=== PATIENT | male | born 1965 | race Caucasian/White ===

== ENCOUNTER 2016-12-20 19:36 | Inpatient (IN) | payer OTHER ==
--- NOTE | ~2016-12-20 | HP ---
Unit #: [id number] #: [id number] Patient: TON ANDERSON [id number] [place] [address] [id number] MR#: [id number] NAME: TON ANDERSON ROOM: P256 Age: 51 Sex: M Admission Date: 12/20/2016 : 1965 Attending Physician: Chacorta Allison M.D. Admitting Physician: Chacorta Allison M.D. Primary Care Physician: Primary Care Physician No HISTORY AND PHYSICAL HISTORY OF PRESENT ILLNESS Ton is a 51 year old admitted to [address] [place] [address] because of his poly illicit substance abuse which includes methamphetamine. He also reports auditory hallucinations. PAST MEDICAL HISTORY 1. Degenerative disc disease a. Chronic pain 2. COPD 3. High blood pressure PAST SURGICAL HISTORY Nothing reported ALLERGIES No known drug allergies. SOCIAL HISTORY Smokes less than one-half pack per day. Has a history of alcohol abuse but has been sober since 1999. Also gives history of illicit substance abuse most recently methamphetamine. FAMILY HISTORY Medically noncontributory. REVIEW OF SYSTEMS CONSTITUTIONAL: No fever or chills. HEENT: Denies any sore throat, ear pain or runny nose. CARDIOVASCULAR: Denies chest pain, irregular heart rhythm or palpitations. CHEST: Denies shortness of breath or cough. No hemoptysis. GASTROINTESTINAL: Denies nausea, vomiting, diarrhea or chronic constipation. ENDOCRINE: Denies history of increased thirst or urination. No recent significant weight loss or gain. GENITOURINARY: Denies dysuria, frequency, or hematuria. SKIN: Denies any rashes. HEMATOLOGIC: Denies history of increased bleeding or bruising. MUSCULOSKELETAL: Denies any hot, swollen joints. No generalized muscle pain. NEUROLOGIC: Denies problems with vision or speech. No frequent, severe headaches. No numbness, tingling or weakness in any extremities. Denies loss of bladder or bowel control. Unit #: [id number] #: [id number] Patient: TON ANDERSON CURRENT MEDICATIONS 1. Risperdal 2 mg q.h.s. 2. Qvar 2 puffs b.i.d. 3. Protonix 40 mg daily 4. Flexeril 5 mg b.i.d. 5. Claritin 10 mg daily 6. Prozac 80 mg daily 7. Propranolol 80 mg t.i.d. p.r.n. 8. Albuterol nebs 9. Proventil inhaler p.r.n. 10. Milk of Magnesia p.r.n. 11. Maalox p.r.n. 12. Tylenol p.r.n. 13. Lortab 7.5 mg 1 tab b.i.d. p.r.n. 14. Amitriptyline 25 mg q.h.s. 15. Singulair 10 mg daily 16. Neurontin 600 mg t.i.d. 17. Depakote ER 2000 mg q.h.s. PHYSICAL EXAMINATION GENERAL: Alert, elderly gentleman appearing much older than his stated age, in no apparent distress. VITAL SIGNS: Blood pressure 116/82, heart rate 80, respirations 16, temperature 98.6. WEIGHT: 166 pounds. HEIGHT: 5'10". SKIN: Warm and dry without rash or lesion. HEENT: Normocephalic. TMs not viewed. Oral and nasal passages clear. Conjunctivae clear. Pupils equal, round and reactive to light and accommodation. Extraocular movements intact. NECK: Supple without lymphadenopathy or thyromegaly. HEART: Regular rate and rhythm without murmur. LUNGS: Clear. ABDOMEN: Soft, nontender. : Not done. EXTREMITIES: No evidence of cyanosis, clubbing or edema. Moves all extremities without focal deficit. NEUROLOGICAL: Grossly within normal limits. Cranial Nerves: II: Visual jonas are intact. III, IV AND : Extraocular movements are intact. Pupils are equal, round and reactive to light. V: Facial sensation is grossly normal. VII: Facial movements and expression are normal. VIII: Auditory acuity grossly intact. IX, X: Uvula is midline. Phonation is normal. XI: Patient shrugs shoulders and turns head normally. XII: Tongue protrudes in the midline. Sensory and Motor Function: Sensory and motor sensation is grossly normal. Motor: moves all extremities well. Coordination: Gait is normal. Deep Tendon Reflexes: Intact. IMPRESSION Psychiatric admission RECOMMENDATIONS PSYCHIATRIC: Per psychiatrist. MEDICAL: I see no contraindications to participating in facility's activities. Unit #: [id number] #: [id number] Patient: TON ANDERSON MEDICAL PROGNOSIS Good. MEDICAL CONDITION Stable. Dictated by... Barb Palm P.A.-C. for Levi Tavera/nedra TD: 12/21/2016 22:07 JOB #: [id number] HISTORY AND PHYSICAL Page 1 of 1 X Barb Palm X HISTORY AND PHYSICAL
--- NOTE | ~2016-12-20 | DS ---
Unit #: [id number] #: [id number] Patient: COLBY BUTLER [id number] [facility] [address] [place] [address] [id number] MR#: [id number] NAME: COLBY BUTLER ROOM: 30 Age: 51 Sex: M Admission Date: 12/20/2016 : 1965 Discharge Date: 12/30/2016 Attending Physician: Chacorta Allison M.D. Primary Care Physician: Primary Care Physician No DISCHARGE SUMMARY REASON FOR ADMISSION Mr. Butler is a 51-year-old man with a history of schizophrenia and history of polysubstance dependence. He lives alone and reports of recent decrease in his functioning. He was hallucinating when picked up by the police and admitted to relapse on methamphetamines. He was admitted for stabilization. DIAGNOSTIC STUDIES LABORATORY RESULTS: Please see hospital chart. HOSPITAL COURSE The patient was admitted and placed on suicide and falls precautions. Risperdal 2 mg at bedtime was added to his previous medication regimen for psychosis and he tolerated his medication with no significant adverse side effects. He had minimal detox symptomatology and on the date of discharge, he had improved mood stability with ability to contract for safety. His home previous medications were continued and unchanged. DISCHARGE DIAGNOSES AXIS I: Bipolar, depressed, F31.4; polysubstance dependence by history. AXIS II: No diagnosis. AXIS III: Chronic obstructive pulmonary disease, chronic pain, gastroesophageal reflux disease, hypertension. AXIS IV: AXIS V: DISCHARGE INSTRUCTIONS Follow up with [facility] and primary care physician. DISCHARGE MEDICATIONS Depakote ER 2000 mg daily for mood stability, Neurontin 600 mg t.i.d. for anxiety, Geodon 60 mg b.i.d. for mood stability, Prozac 60 mg daily for depression, Elavil 50 mg at bedtime as needed for insomnia. Primary care medicines were continued and unchanged. CONDITION AT DISCHARGE Fair. PROGNOSIS Fair to good. DIET AND ACTIVITY Unit #: [id number] #: [id number] Patient: COLBY BUTLER Per primary care doctor. Dictated by... Chacorta Allison M.D. JAY/cal TD: 02/15/2017 01:15 JOB #: [id number] DISCHARGE SUMMARY Page 1 of 1 X Chacorta Allison MD DISCHARGE SUMMARY
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
[~2016-12-20 19:36] MED LIST: AMITRIPTYLINE H25 MG PO; CETIRIZINE HCL10 MG PO; DEPAKOTE ER PO; INDERAL XL80 MG PO; MONTELUKAST SOD10 MG PO; NEURONTIN600 MG PO; OMEPRAZOLE20 M1 PO; PROZAC40 M1 PO; TRAMADOL HCL50 M1 PO
[2016-12-21 09:45] LABS: BASOPHIL% 0.5 % (0-2.5); EOSINOPHIL% 0.8 % (0.0-7.0); HEMATOCRIT 39.2 % (38.0-50.0); HEMOGLOBIN 12.9 gm/dL (13.0-16.0); LYMPHOCYTE# 2.8 X10e3 (1.0-3.5); LYMPHOCYTE% 52.5 % (17.0-45.0); MEAN CELL VOLUME 90.9 FL (83-96); MEAN PLATELET VOLUME 7.7 FL (6.5-11.5); MONOCYTE# 0.9 X10e3 (0-1.0); MONOCYTE% 17.2 % (3.0-12.0); NEUTROPHIL# 1.5 X10e3 (1.5-7.1); PLATELET COUNT 304 X10e3 (140-420); RED BLOOD COUNT 4.31 X10e (3.90-5.60); RED CELL DISTRIBUTION WIDTH 15.5 % (11.0-15.5); WHITE BLOOD COUNT 5.3 X10e3 (4.0-10.5)
[2016-12-21 09:48] LABS: ALBUMIN SERUM 3.3 g/dL (3.5-5.0); ALKALINE PHOSPHATASE 83 U/L (32-92); ALT (SGPT) 26 U/L (10-40); AST (SGOT) 32 U/L (10-42); BILIRUBIN,TOTAL 0.4 mg/dL (0.2-2.0); BLOOD UREA NITROGEN 14 mg/dL (9-23); BUN/CREATININE RATIO 15.55; CALCIUM SERUM 8.9 mg/dL (8.4-10.2); CARBON DIOXIDE 26 mmol/L (22-31); CHLORIDE 105 mmol/L (100-111); CREATININE SERUM 0.9 mg/dL (0.6-1.4); GLOM FILT RATE Estimated 97.2 mL/min (>60); GLUCOSE FASTING 83 mg/dL (70-110); POTASSIUM 4.2 mmol/L (3.5-5.1); PROTEIN TOTAL SERUM 6.2 g/dL (6.0-8.3); SODIUM 142 mmol/L (135-145)
[2016-12-21 09:50] LABS: DEPAKENE (VALPROIC ACID) <10 ug/mL (50-125); DIFF IND YES
[2016-12-21 10:35] LABS: ANISOCYTOSIS SL; PLATELET ESTIMATE NORMAL (NORMAL)
[2016-12-26 13:03] LABS: ALBUMIN SERUM 3.3 g/dL (3.5-5.0); BILIRUBIN,TOTAL 0.7 mg/dL (0.2-2.0); CALCIUM SERUM 9.3 mg/dL (8.4-10.2); CREATININE SERUM 0.8 mg/dL (0.6-1.4); POTASSIUM 4.5 mmol/L (3.5-5.1); PROTEIN TOTAL SERUM 6.1 g/dL (6.0-8.3)
== END 2016-12-30 18:46 | disposition home or self-care (01) | DRG 885 ==
LOC: P2L 19:36 → P1S 12-27 22:14
PROVIDERS: Psychiatry & Neurology Psychiatry
DX: F33.2 Major depressive disorder, recurrent severe without psychotic features (principal); F20.0 Paranoid schizophrenia; R45.851 Suicidal ideations; F29 Unspecified psychosis not due to a substance or known physiological condition; F19.94 Other psychoactive substance use, unspecified with psychoactive substance-induced mood disorder; J45.909 Unspecified asthma, uncomplicated; K21.9 Gastro-esophageal reflux disease without esophagitis; G89.29 Other chronic pain; Z91.81 History of falling; J44.9 Chronic obstructive pulmonary disease, unspecified; I10 Essential (primary) hypertension; F17.210 Nicotine dependence, cigarettes, uncomplicated
CPT/HCPCS: 80053; 80164; 85025